=== PATIENT | male | born 1995 | race Caucasian/White ===

== ENCOUNTER 2019-02-14 11:37 | Emergency (ER) | payer MEDICAID ==
[~2019-02-14] VITALS: Ht 170.2 cm; Wt 60.8 kg
[2019-02-14 11:39] VITALS: BP 117/70; Ht 170.2 cm; Wt 60.8 kg
== END 2019-02-14 13:02 | disposition home or self-care (01) ==
LOC: ED 11:37
DX: S01.21XA Laceration without foreign body of nose, initial encounter (principal); W54.0XXA Bitten by dog, initial encounter; Y93.89 Activity, other specified; Y92.89 Other specified places as the place of occurrence of the external cause; Y99.8 Other external cause status